=== PATIENT | female | born 1985 | race Caucasian/White ===

== ENCOUNTER 2021-10-18 16:30 | Emergency (ER) | payer OTHER, SELFPAY ==
--- NOTE | 2021-10-18 16:42 | ED.DENTAL ---
HPI - Dental/Oral General Chief complaint: Dental/Oral Stated complaint: toothache Time Seen by Provider: 10/18/21 16:42 Source: patient Mode of arrival: ambulatory Limitations: no limitations History of Present Illness HPI Narrative: Jannet Borrero is a 36 yo female with no PMH who comes here with left-sided jaw swelling with left lower tooth #30 right side of face mildly swollen and enlarged lymph nodesthat started yesterday. States she is having a lot of pain and hard to eat. She called her dentist and has an appointment on the Related Data Allergies Allergy/AdvReac Type Severity Reaction Status Date / Time No Known Allergies Allergy Unverified 10/18/21 16:44 Review of Systems Review of Systems: CONSTITUTIONAL: Denies fever, chills, sweats. EYES: Denies visual changes, redness, discharge. ENT: Denies rhinorrhea, congestion, sore throat, otalgia. Left lower molar pain and swelling of face CARDIOVASCULAR: Denies chest pain, palpitations, edema. RESPIRATORY: Denies dyspnea, wheezing, cough GASTROINTESTINAL: Denies abdominal pain, nausea, vomiting, diarrhea. GENITOURINARY: Denies dysuria, hematuria, abnormal discharge SKIN: Denies rash or itching. NEUROLOGIC: Denies numbness, or focal weakness. PSYCHIATRIC: Denies anxiety or depression. Left-sided dental pain PMFSH Past Medical History Medical History No acute medical problems Family History Family History Other Asthma Cerebrovascular accident Diabetes mellitus Family history of cardiovascular disease Social History Social History Smoking status: Never smoker Alcohol intake: never Comments At time of signature, I agree with nursing past medical, surgical, social and family history. There is no relevant family history pertinent to the presenting complaint. Exam Narrative: GENERAL: This is a well-nourished, well-developed patient, in moderate distress. HEAD: normocephalic, atraumatic. EYES: Sclera clear/white. Vision is grossly intact. EARS: External ears normal. Hearing grossly intact. NOSE: External nose normal without nasal discharge, nares without redness, no rhinorrhea. THROAT mouth: Mucous membranes moist, swelling on left lower molar with swelling of left cheek, enlarged left submandibular lymph node NECK: Neck supple, non-tender CARDIOVASCULAR: Regular rate and rhythm without murmurs, gallops, or rubs. RESPIRATORY: Clear to auscultation. Breath sounds equal bilaterally. No wheezes, rales, or rhonchi. GASTROINTESTINAL: Abdomen soft, non-tender, SKIN: warm, intact with no suspicious lesions or rash, good texture and turgor. NEURO: awake, alert, and oriented to person, place and time. There were no obvious focal neurologic abnormalities. Steady gait EXTREMITIES: Normal range of motion. BACK: Nontender without deformity Course Course Emergency Course: Patient here with dental pain that started yesterday Started on penicillin VK 500 mg 1 3 times daily x10 days Medrol Dosepak Level of Care: Express Care Visit Vital Signs Vital signs: Vital Signs Temperature 98.5 F 10/18/21 16:44 Pulse Rate 80 10/18/21 16:44 Respiratory Rate 18 10/18/21 16:44 Blood Pressure 147/83 H 10/18/21 16:44 Pulse Oximetry 100 10/18/21 16:44 Temperature 98.5 F 10/18/21 16:44 Pulse Rate 80 10/18/21 16:44 Respiratory Rate 18 10/18/21 16:44 Blood Pressure 147/83 H 10/18/21 16:44 Pulse Oximetry 100 10/18/21 16:44 MDM - Dental/Oral Differential Diagnosis Differential diagnosis: Likely gingival abscess, dental caries, toothache, dental abscess and other Critical Care Time Critical Care Time Critical Care Time: No Discharge Plan Discharge Clinical Impression: Dental abscess Patient Disposition: Home, Self-Care Condition: Stable Instructions: Dental
[2021-10-18 16:44] VITALS: BP 147/83; PULSE 80; RESP 18; TEMP 36.9; O2SAT 100
== END 2021-10-18 16:59 | disposition home or self-care (01) ==
PROVIDERS: Emergency Provider Nurse Practitioner
DX: K04.7 Periapical abscess without sinus (principal)
CPT/HCPCS: 99213; G0463